=== PATIENT | male | born 1985 | race Caucasian/White ===

== ENCOUNTER 2017-08-07 16:39 | Emergency (ER) | payer SELFPAY ==
[2017-08-07 16:50] VITALS: BP 146/76
--- NOTE | 2017-08-07 17:30 | ER Document Report ---
ED ENT - General Mode of Arrival: Ambulatory Information source: Patient TRAVEL OUTSIDE OF THE [place] IN LAST 30 DAYS: No - General Chief Complaint: Ear Pain Stated Complaint: BILAT EARACHE Time Seen by Provider: 08/07/17 17:21 Notes: Patient is a 32-year-old male who presents to the emergency department today with complaints of bilateral ear "muffling". Patient states he has pain in his left ear but the right is not painful. Patient states he has been having symptoms since Tuesday which was 2 days ago. Patient denies any throat pain, nasal congestion, lymph node swelling, or recent swimming. (ULISSES LY) - Related Data Allergies/Adverse Reactions: No Known Allergies Allergy (Verified 08/07/17 16:40) Past Medical History - General Information source: Patient - Social History Smoking Status: Current Every Day Smoker Cigarette use (# per day): Yes Frequency of alcohol use: None Drug Abuse: None Lives with: Family Family History: Reviewed & Not Pertinent Patient has suicidal ideation: No Patient has homicidal ideation: No Renal/ Medical History: Denies: Hx Peritoneal Dialysis Infectious Medical History: Denies: Hx MRSA Past Surgical History: Reports: Hx Oral Surgery - molars removed - Immunizations Immunizations up to date: Yes Hx Diphtheria, Pertussis, Tetanus Vaccination: Yes Review of Systems - Review of Systems Constitutional: denies: Fever EENT: See HPI, Ear pain. denies: Throat pain Cardiovascular: No symptoms reported Respiratory: No symptoms reported Gastrointestinal: No symptoms reported Genitourinary: No symptoms reported Male Genitourinary: No symptoms reported Musculoskeletal: No symptoms reported Skin: No symptoms reported Hematologic/Lymphatic: No symptoms reported Neurological/Psychological: No symptoms reported -: Yes All other systems reviewed and negative Physical Exam - Vital signs Vitals: Temp Pulse Resp BP Pulse Ox 98.1 F 99 15 146/76 H 97 08/07/17 16:49 08/07/17 16:49 08/07/17 16:49 08/07/17 16:49 08/07/17 16:49 - Notes Notes: Physical Exam: General: Alert, appears well. HEENT: Normocephalic. Atraumatic. PERRLA. Extraocular movements intact. Oropharynx clear. Extensive amounts of impacted cerumen in bilateral external canals, TMs could not be visualized secondary to this cerumen. No mastoid tenderness with palpation. No posterior pharynx erythema or exudate. Neck: Supple. Respiratory: No respiratory distress. Abdominal: Normal Inspection. No distension. Extremities: Moves all four extremities. Neurological: Normal cognition. AAOx4. Normal speech. Psychological: Normal affect. Normal Mood. Skin: Warm. Dry. Normal color. (ULISSES LY) Course - Re-evaluation Re-evalutation: 08/07/17 17:31 Patient has benign exam other than mass of cerumen impaction bilateral external auditory canals. Patient will be provided Debrox. (JONH YANES) - Vital Signs Vital signs: Temp Pulse Resp BP Pulse Ox 98.1 F 99 15 146/76 H 97 08/07/17 16:49 08/07/17 16:49 08/07/17 16:49 08/07/17 16:49 08/07/17 16:49 Discharge - Discharge Clinical Impression: Impacted cerumen of both ears Condition: Good Disposition: HOME, SELF-CARE Instructions: Cerumen Impaction ([facility]) Additional Instructions: Use medications as prescribed provided today in the emergency department Prescriptions: Carbamide Peroxide [Debrox 6.5 % Otic Drops 15 ml] 10 drop OT BID #1 bottle Scribe Attestation: 08/15/17 07:38 I personally performed the services described in the documentation, reviewed and edited the documentation which was dictated to the scribe in my presence, and it accurately records my words and actions. (JONH YANES) Scribe Documentation - Scribe Written by Scribe:: Petra Law, 08/07/2017 1905 acting as scribe for :: Herson
[2017-08-07] MEDS ORDERED: CARBAMIDE PEROXIDE 6.5% OTIC SOLN 15 ML AD PRN (17:34)
== END 2017-08-07 17:55 | disposition home or self-care (01) ==
LOC: ER 16:39
DX: H61.23 Impacted cerumen, bilateral (principal); H92.02 Otalgia, left ear; F17.210 Nicotine dependence, cigarettes, uncomplicated
CPT/HCPCS: 99282; J3490

== ENCOUNTER 2019-01-08 10:42 | Emergency (ER) | payer SELFPAY ==
[2019-01-08 10:55] VITALS: BP 132/79
[2019-01-08] MEDS ORDERED: CIPROFLOXACIN HCL/DEXAMETH OTIC DROP 7.5 ML AS ONE ×2 (11:24→12:15)
--- NOTE | 2019-01-08 11:27 | ER Document Report ---
HPI - HPI Time Seen by Provider: 01/08/19 11:20 Pain Level: 4 Notes: Patient is a 33-year-old male no significant past medical history presents complaining of left ear pain for the past few days. Patient states he is no some swelling and drainage from the ear as well. Denies drug allergies. No other recent illness. He is able to eat and drink without difficulties. Pain does not radiate. Denies any headache, fever, head injury, neck pain, URI, sore throat, chest pain, palpitations, syncope, cough, shortness of breath, wheeze, dyspnea, abdominal pain, nausea/vomiting/diarrhea, urinary retention, dysuria, hematuria, ear fullness/dizziness, or rash. - ROS Systems Reviewed and Negative: Yes All other systems reviewed and negative - CONSTITUTIONAL Constitutional: DENIES: Fever, Chills - EENT EENT: REPORTS: Ear Pain. DENIES: Sore Throat, Eye problems Past Medical History - Social History Smoking Status: Never Smoker Frequency of alcohol use: None Drug Abuse: None Family History: Reviewed & Not Pertinent Patient has suicidal ideation: No Patient has homicidal ideation: No Renal/ Medical History: Denies: Hx Peritoneal Dialysis Infectious Medical History: Denies: Hx MRSA Past Surgical History: Reports: Hx Oral Surgery - molars removed - Immunizations Immunizations up to date: Yes Hx Diphtheria, Pertussis, Tetanus Vaccination: Yes Vertical Provider Document - CONSTITUTIONAL Agree With Documented VS: Yes Notes: PHYSICAL EXAMINATION: GENERAL: Well-appearing, well-nourished and in no acute distress. A&Ox4. Answers questions appropriately. Moves comfortably w/o notable distress HEAD: Atraumatic, normocephalic. EYES: Pupils equal round and reactive to light, extraocular movements intact, sclera anicteric, conjunctiva are normal. ENT: Lt EAC tender, scant discharge w/mild swelling/occlusion. Rt EAC wnl. + Tenderness to tragus Lt. No mastoid tenderness bilaterally. TM's intact b/l without erythema, fluid, or perforation. Nares patent and without discharge. oropharynx no erythema without exudates. No tonsilar hypertrophy without erythema or exudate. No palatine shift. Uvula midline. No tongue protrusion. No drooling, hoarseness, or airway compromise. Moist mucous membranes. No sinus tenderness. NECK: Normal range of motion, supple without lymphadenopathy. No rigidity/meningismus. LUNGS: Breath sounds clear to auscultation bilaterally and equal. No wheezes rales or rhonchi. No retractions HEART: Regular rate and rhythm without murmurs, rubs, gallops. NEUROLOGICAL: Normal speech, normal gait. PSYCH: Normal mood, normal affect. SKIN: Warm, Dry, normal turgor, no rashes or lesions noted. - INFECTION CONTROL TRAVEL OUTSIDE OF THE [place] IN LAST 30 DAYS: No Course - Re-evaluation Re-evalutation: 01/08/19 11:25 Patient is an afebrile, well-hydrated, 33-year-old male who presents with acute otitis externa of the left ear. Vitals are acceptable without significant tachycardia, tachypnea, or hypoxia. PE is otherwise unremarkable. Patient is nontoxic-appearing and is tolerating p.o. without difficulty. Ear wick was placed successfully without any complications and Ciprodex applied. No further work-up warranted. Low suspicion for any sepsis, meningitis, severe dehydration, respiratory compromise, mastoiditis, or other systemic emergent condition at this time. Patient is aware that condition can change from initial presentation and she needs to monitor symptoms closely and seek medical attention with any acute changes. Recheck with your PCM in 3 to 5 days. Consider consult with ENT. Return to the ED with any other worsening/concerning symptoms. Patient is in agreement. - Vital Signs Vital signs: Temp Pulse Resp BP Pulse Ox 98.6 F 81 18 132/79 H 98 01/08/19 10:52 01/08/19 10:52 01/08/19 10:52 01/08/19 10:52 01/08/19 10:52 Procedures - Additional Procedures ear wick placement Additional Procedures: Other - Ear wick placed successfully to the left EAC without any complications. Patient tolerated procedure well. Ciprodex applied. Discharge - Discharge Clinical Impression: Acute otitis externa of left ear Qualifiers: Otitis externa type: unspecified type Qualified Code(s): H60.502 - Unspecified acute noninfective otitis externa, left ear Condition: Stable Disposition: HOME, SELF-CARE Instructions: Using Ear Drops with a Wick ([facility]), Otitis Externa ([facility]) Additional Instructions: Maintain adequate fluid intake Take meds as directed tylenol/ibuprofen as needed Avoid Q-tips in the ears over the counter cold medication as needed for symptoms F/u: with your PCM in 2-3 days for a recheck Consider consult with ENT Return to the ED with any fever, dizziness, tinnitus, headaches, worsening pain, chest pain, palpitations, syncope, neck pain/stiffness, shortness of breath, wheezing, drooling, trouble swallowing/breathing, abdominal pain, n/v/d, rash, or worsening/concerning symptoms otherwise. Prescriptions: Ciprofloxacin HCl/Dexameth [Ciprodex Otic Suspension 7.5 ml Bottle] 4 drop OT BID #1 bottle Forms: Elevated Blood Pressure Referrals: JONH RIVERA DO [ASSOCIATE] - Follow up as needed
== END 2019-01-08 12:05 | disposition home or self-care (01) ==
LOC: ER 10:42
DX: H60.502 Unspecified acute noninfective otitis externa, left ear (principal); H92.02 Otalgia, left ear
CPT/HCPCS: 99282; J3490

== ENCOUNTER 2019-11-28 18:26 | Emergency (ER) | payer SELFPAY ==
[2019-11-28 18:32] VITALS: BP 136/84
--- NOTE | 2019-11-28 18:41 | ER Document Report ---
ED Extremity Problem, Upper - General Chief Complaint: Arm Pain Stated Complaint: LEFT ARM PAIN/WRIST PAIN Time Seen by Provider: 11/28/19 18:35 Primary Care Provider: [facility] [Provider Group] - Follow up as needed ELIAS STEVE JR, DO [ACTIVE PROVISIONAL STAFF] - Follow up tomorrow Mode of Arrival: Ambulatory Information source: Patient Notes: 34-year-old male presented to ED for complaint of pain to the left forearm since Tuesday evening. He states he was holding something down on his mini bike when the pain started does not know if he injured anything. He states the pain is slowly starting to get worse. He states he is out of work right now due to the coronavirus pandemic so he is not using his arm like he normally does. He sta jennifer after holding down his mini bike on Tuesday he went to lift his fingers up on his hand and he was unable to lift the fingers up. TRAVEL OUTSIDE OF THE [place] IN LAST 30 DAYS: No - HPI Patient complains to provider of: Left, Forearm Onset: Other - Tuesday Recent injury: Possibly Where: Home, Outdoors Quality of pain: Burning, Sharp Pain Level: 3 - Related Data Allergies/Adverse Reactions: No Known Allergies Allergy (Verified 11/28/19 18:42) Past Medical History - General Information source: Patient - Social History Smoking Status: Former Smoker Frequency of alcohol use: Occasional Drug Abuse: None Lives with: Family Family History: Reviewed & Not Pertinent Patient has suicidal ideation: No Patient has homicidal ideation: No - Past Medical History Cardiac Medical History: Reports: None Pulmonary Medical History: Reports: None EENT Medical History: Reports: None Neurological Medical History: Reports: None Endocrine Medical History: Reports: None Renal/ Medical History: Reports: None Malignancy Medical History: Reports None GI Medical History: Reports: None Musculoskeletal Medical History: Reports Hx Musculoskeletal Trauma Skin Medical History: Reports Hx Psoriasis Psychiatric Medical History: Reports: None Traumatic Medical History: Reports: Hx Fractures - left wrist Infectious Medical History: Reports: None Past Surgical History: Reports: Hx Oral Surgery - molars removed - Immunizations Immunizations up to date: Yes Hx Diphtheria, Pertussis, Tetanus Vaccination: Yes - 2017 Review of Systems - Review of Systems Constitutional: No symptoms reported EENT: No symptoms reported Cardiovascular: No symptoms reported Respiratory: No symptoms reported Gastrointestinal: No symptoms reported Genitourinary: No symptoms reported Male Genitourinary: No symptoms reported Musculoskeletal: Other - Left forearm pain worse with movement of the fingers or wrist Skin: No symptoms reported Hematologic/Lymphatic: No symptoms reported Neurological/Psychological: No symptoms reported -: Yes All other systems reviewed and negative Physical Exam - Vital signs Vitals: Temp Pulse Resp BP Pulse Ox 98.8 F 94 18 136/84 H 98 11/28/19 18:31 11/28/19 18:31 11/28/19 18:31 11/28/19 18:31 11/28/19 18:31 Interpretation: Normal - General General appearance: Appears well, Alert - HEENT Head: Normocephalic, Atraumatic Eyes: Normal Pupils: PERRL - Respiratory Respiratory status: No respiratory distress Chest status: Nontender Breath sounds: Normal Chest palpation: Normal - Cardiovascular Rhythm: Regular Heart sounds: Normal auscultation Murmur: No - Abdominal Inspection: Normal Distension: No distension Bowel sounds: Normal Tenderness: Nontender Organomegaly: No organomegaly - Back Back: Normal, Nontender - Extremities General upper extremity: Normal inspection, Normal color, Normal temperature General lower extremity: Normal inspection, Nontender, Normal color, Normal ROM, Normal temperature, Normal weight bearing. No: Holden's sign Forearm: Tender Wrist: Limited ROM - Due to pain in the forearm. No: Tender, Abrasion, Axial load of thumb pain, Deformity, Dislocation, Ecchymosis, Instability, Laceration, Navicular tenderness, Other Hand: No evidence of human bite, No evidence of FB. No: Tender, Abrasion, Deformity, Dislocation, Ecchymosis, Instability, Laceration, Nail injury, Swelling - Neurological Neuro grossly intact: Yes Cognition: Normal Orientation: AAOx4 Angie Coma Scale Eye Opening: Spontaneous [place] Coma Scale Verbal: Oriented [place] Coma Scale Motor: Obeys Commands Angie Coma Scale Total: 15 Speech: Normal Motor strength normal: LUE, RUE, LLE, RLE Sensory: Normal - Psychological Associated symptoms: Normal affect, Normal mood - Skin Skin Temperature: Warm Skin Moisture: Dry Skin Color: Normal Course - Re-evaluation Re-evalutation: 11/28/19 19:41 X-ray was discussed with patient written report as well as picture of x-ray showed to patient. Written report given to patient to follow-up with orthopedics. Patient was given the name and number of [facility] for surgery and Dr. Steve. Patient stated that a cock-up splint would not help him but he would like a sling. Sling was applied to the left arm and patient was discharged home. He was given instructions on ice elevation and ibuprofen. - Vital Signs Vital signs: Temp Pulse Resp BP Pulse Ox 98.3 F 82 16 136/84 H 99 11/28/19 19:27 11/28/19 19:27 11/28/19 19:27 11/28/19 19:11/28/19 19:27 - Diagnostic Test Radiology reviewed: Image reviewed, Reports reviewed Procedures - Immobilization Left Arm Time completed: :31 Immobilizer type: Sling Performed by: PCT Post-Proc Neuro Vasc Exam: Normal Alignment checked and good: Yes Discharge - Discharge Clinical Impression: Left forearm pain Condition: Stable Disposition: HOME, SELF-CARE Additional Instructions: You were seen today for pain to the left forearm. We have completed x-rays to the left forearm. There is no radiological abnormalities noted at this time. Ibuprofen Ibuprofen is an excellent, safe drug for pain control. In addition, it has potent antiinflammatory effects which are beneficial, especially in the treatment of injuries, arthritis, or tendonitis. It's best to take ibuprofen with food. Persons with ulcer disease or allergy to aspirin should notify their physician of this before taking ibuprofen. Take the medication exactly as prescribed. Don't take additional doses unless instructed to do so by your doctor. If you develop wheezing, shortness of breath, hives, faintness, stomach pain, vomiting, or dark black stools, return for re-evaluation at once. Ice & Elevation Apply ice packs frequently against the painful area. Many different schedules are recommended, such as "20 minutes on, 20 minutes off" or "one hour ice, two hours rest." If you need to work, you may need to go longer between ice treatments. You should plan to have the area ice packed AT LEAST one-fourth of the time. The ice should be applied over the wrap, tape, or splint, or over a layer of cloth -- not directly against the skin. Some ice bags have a built-in cloth and can be put directly on the skin. Your injured part should be elevated as much as possible over the next 48 hours. Try to keep the injury above the level of the heart. Avoid use of the injured area. Elevation and rest will decrease the swelling. FOLLOW-UP CARE: If you have been referred to a physician for follow-up care, call the physicians office for an appointment as you were instructed or within the next two days. If you experience worsening or a significant change in your symptoms, notify the physician immediately or return to the Emergency Department at any time for re-evaluation. Forms: Elevated Blood Pressure Referrals: [facility] ([facility] [Provider Group] - Follow up as needed ELIAS STEVE JR, [ACTIVE PROVISIONAL STAFF] - Follow up tomorrow
[2019-11-28] MEDS ORDERED: IBUPROFEN 800 MG TABLET PO ONE (18:42)
--- NOTE | 2019-11-28 19:05 | RADIOLOGY REPORT (SQ) ---
EXAM DESCRIPTION: FOREARM LEFT COMPLETED DATE/TIME: 11/28/2019 6:55 pm REASON FOR STUDY: pain and injury COMPARISON: None. NUMBER OF VIEWS: Two views. TECHNIQUE: Two radiographic images acquired of the left forearm, including elbow and wrist in at [address] one projection. LIMITATIONS: None. FINDINGS: MINERALIZATION: Normal. BONES: No acute fracture. No worrisome bone lesions. SOFT TISSUES: No obvious swelling or foreign body. OTHER: No other significant finding. IMPRESSION: NEGATIVE STUDY OF THE LEFT FOREARM. NO RADIOGRAPHIC EVIDENCE OF ACUTE INJURY. TECHNICAL DOCUMENTATION: JOB ID: [id number] 2010 [employer]- All Rights Reserved Reading location - IP/workstation name: [email or web address]
== END 2019-11-28 19:28 | disposition home or self-care (01) ==
LOC: ER 18:26
DX: M79.632 Pain in left forearm (principal); Z87.891 Personal history of nicotine dependence; Z87.81 Personal history of (healed) traumatic fracture
CPT/HCPCS: 99283